=== PATIENT | female | born 1980 | race Hispanic/Latino ===

== ENCOUNTER 2018-02-28 21:24 | Emergency (ER) | payer BC | END 2018-02-28 22:15 | disposition home or self-care (01) | LOC: NAV ERS 21:24 | DX: J31.0 Chronic rhinitis (principal); I10 Essential (primary) hypertension; F32.9 Major depressive disorder, single episode, unspecified; F41.0 Panic disorder [episodic paroxysmal anxiety] | CPT/HCPCS: 99283 ==

== ENCOUNTER 2020-10-25 14:07 | Emergency (ER) | payer SELFPAY | END 2020-10-25 15:25 | disposition home or self-care (01) | LOC: NAV ERS 14:07 | DX: S92.411A Displaced fracture of proximal phalanx of right great toe, initial encounter for closed fracture (principal); I10 Essential (primary) hypertension; Z79.899 Other long term (current) drug therapy; W26.9XXA Contact with unspecified sharp object(s), initial encounter ==

== ENCOUNTER 2021-02-19 15:52 | Emergency (ER) | payer SELFPAY | END 2021-02-19 17:04 | disposition home or self-care (01) | LOC: NAV ERS 15:52 | DX: F41.9 Anxiety disorder, unspecified (principal); I10 Essential (primary) hypertension; Z79.899 Other long term (current) drug therapy | CPT/HCPCS: 99284 ==